=== PATIENT | female | born 1955 | race Two or more races ===

== ENCOUNTER 2016-12-24 20:17 | Observation (INO) | payer MEDICAID ==
[2016-12-24 20:55] LABS: BASO # 0.1 K/uL (0.0-0.2); BASO % 0.9 % (0.0-2.0); EOS % 0.7 % (0.0-4.0); HEMOGLOBIN 14.5 g/dL (12.0-16.0); LYMPH # 2.5 K/uL (1.0-4.3); LYMPH % 37.3 % (20.0-40.0); MEAN CELL VOLUME 90.7 fl (81.0-99.0); MEAN CORPUSCULAR HEMOGLOBIN 30.7 pg (27.0-31.0); MEAN CORPUSCULAR HGB CONC 33.9 g/dL (33.0-37.0); MONO # 0.6 K/uL (0.0-0.8); MONO % 8.9 % (0.0-10.0); NEUT # 3.5 K/uL (1.8-7.0); NEUT % 52.2 % (50.0-75.0); NRBC % 0.1 % (0.0-0.0); RBC 4.72 Mil/uL (3.80-5.20); RED CELL DISTRIBUTION WIDTH 13.6 % (11.5-14.5); WHITE BLOOD COUNT 6.8 K/uL (4.8-10.8)
[2016-12-24 20:59] LABS: BLOOD UREA NITROGEN 10 mg/dl (7-17); CALCIUM 9.4 mg/dL (8.4-10.2); GFR AFRICAN-AMERICAN > 60; GFR NON-AFRICAN AMERICAN > 60
[2016-12-24 21:00] LABS: SALICYLATE < 1.0 mg/dl
[2016-12-24 21:09] LABS: ACETAMINOPHEN < 10.0 ug/ml (10.0-30.0)
--- NOTE | 2016-12-24 21:26 | ED PDOC ---
HPI: Psych/Substance Abuse Time Seen by Provider: 12/24/16 20:20 Chief Complaint (Nursing): Psychiatric Evaluation Chief Complaint (Provider): Psych evaluation History Per: Patient Additional History Per: Other (Psych facility) Additional Complaint(s): The patient is a 61yo female, brought in for evaluation from a psych facility for noncompliance with medication and aggressive behavior towards staff. Pt arrives with an internal preoccupation with [place], states she does not want to go back to her penitentiary or stay here; pt reports she wishes to go to the airport to board a [place] flight back to [place]. She denies any suicidal or homicidal ideation. No other medical complaints. Past Medical History Reviewed: Historical Data, Nursing Documentation, Vital Signs Vital Signs: Last Vital Signs Temp 98 F 12/24/16 20:18 Pulse 88 12/24/16 20:18 Resp 18 12/24/16 20:18 BP 153/82 H 12/24/16 20:18 Pulse Ox 98 12/24/16 20:18 - Family History Family History: States: Unknown Family Hx - Home Medications Home Medications: Ambulatory Orders Medication Instructions Recorded Divalproex Sodium [Divalproex 2 tab PO HS 12/24/16 Sodium ER] Docusate Sodium [Stool Softener] 100 mg PO PRN PRN 12/24/16 Olanzapine [Zyprexa Zydis] 15 mg PO HS 12/24/16 Risperidone [Risperdal] 4 mg PO BID 12/24/16 - Allergies Allergies/Adverse Reactions: Allergies Allergy/AdvReac Type Severity Reaction Status Date / Time No Known Allergies Allergy Verified 12/24/16 20:38 Review of Systems ROS Statement: Except As Marked, All Systems Reviewed And Found Negative Psych: Positive for: Psychosis, Other (preoccupation with [place]) Physical Exam - Reviewed Nursing Documentation Reviewed: Yes Vital Signs Reviewed: Yes - Physical Exam Appears: Positive for: Well, Non-toxic, No Acute Distress Skin: Positive for: Normal Color, Warm, DRY Eye Exam: Positive for: EOMI, Normal appearance, PERRL ENT: Positive for: Normal ENT Inspection Neck: Positive for: Normal, Painless ROM Cardiovascular/Chest: Positive for: Regular Rate, Rhythm Respiratory: Positive for: CNT, Normal Breath Sounds Gastrointestinal/Abdominal: Positive for: Normal Exam, Bowel Sounds, Soft Extremity: Positive for: Normal ROM Neurologic/Psych: Positive for: Alert (refuses to answer most questions.) - Laboratory Results Result Diagrams: 12/24/16 20:45 12/24/16 20:45 - ECG O2 Sat by Pulse Oximetry: 98 (RA) Pulse Ox Interpretation: Normal Medical Decision Making Medical Decision Making: Time: 2030 Impression: Psychosis Plan: -- Drug screen -- Urinalysis -- Crisis evaluation -- ED observation Reassess Scribe Attestation: Documented by Mikki Gutierrez acting as a scribe for Chanlder Booker MD. Provider Attestation: All medical record entries made by the Scribe were at my direction and personally dictated by me. I have reviewed the chart and agree that the record accurately reflects my personal performance of the history, physical exam, medical decision making, and the department course for this patient. I have also personally directed, reviewed, and agree with the discharge instructions and disposition. ED OBSERVATION Date of observation admission: 12/24/16 Time of observation admission: 20:39 - Observation admission statement Patient is being placed in observation because:: Awaiting ED workup - Goals of Observation Goals of observation are:: Psychiatic evaluation and disposition - Progress Note Progress Note: 12/24/16 21:45 No complaints offered. Resting comfortably. 12/24/16 23:00 No complaints offered. Resting comfortably. 12/25/16 00:15 No complaints offered. Resting comfortably. 12/25/16 01:21 No complaints offered. Resting comfortably. 12/25/16 02:12 No complaints offered. Resting comfortably. Awaiting crisis eval. 12/25/16 03:15 Pt. calm and cooperative after ativan. EKG NSR @59. CXR negative as viewed by me. UTI, will prescribe macrobid. Patient is cleared medically. 12/25/16 03:46 No complaints offered at this time. Resting comfortably. 12/25/16 05:14 No complaints offered. Resting comfortably. Awaiting crisis eval. 12/25/16 06:51 No complaints offered. Resting comfortably. Awaiting crisis eval. Disposition - Clinical Impression Clinical Impression: Delusional disorder - Disposition Disposition: Transfer of Care Disposition Time: 20:39 Condition: STABLE Patient Signed Over To: Pinky Frazier Handoff Comments: Pending [facility] screening - Pt Status Changed To: Hospital Disposition Of: Observation
[2016-12-25 00:22] LABS: SQUAMOUS EPITHIAL 6 /hpf (0-5); URINE BACTERIA OCC (<OCC); URINE BILIRUBIN NEGATIVE (NEGATIVE); URINE BLOOD SMALL (NEGATIVE); URINE CLARITY CLOUDY (Clear); URINE COLOR YELLOW (YELLOW); URINE GLUCOSE (UA) NEG (Normal); URINE LEUKOCYTE ESTERASE LARGE Leu/uL (Negative); URINE NITRATE NEGATIVE (NEGATIVE); URINE PROTEIN NEGATIVE (NEGATIVE); URINE UROBILINOGEN 0.2-1.0 mg/dL (0.2-1.0)
[2016-12-25 00:33] LABS: BARBITURATES, UR NEGATIVE (NEGATIVE); BENZODIAZEPINES, UR NEGATIVE (NEGATIVE); OPIATES, UR NEGATIVE (NEGATIVE); PHENCYCLIDINE, UR NEGATIVE (NEGATIVE)
--- NOTE | 2016-12-25 07:20 | ED PDOC ---
- Laboratory Results Result Diagrams: 12/24/16 20:45 12/24/16 20:45 - ECG O2 Sat by Pulse Oximetry: 98 (RA) Disposition - Clinical Impression Clinical Impression: Delusional disorder - POA Present On Arrival: None - Disposition Disposition: Transfer of Care Disposition Time: 17:00 Condition: STABLE Patient Signed Over To: Rosalind Mcdonald Addendum Addendum: 12/25/16 07:20 Pt [address] out [address] Booker pending [facility] [place].
--- NOTE | 2016-12-25 10:32 | RAD ---
HISTORY: r/o PNA COMPARISON: No prior. FINDINGS: LUNGS: The lungs are clear. PLEURA: No significant pleural effusion identified, no pneumothorax apparent. CARDIOVASCULAR: Normal. OSSEOUS STRUCTURES: No significant abnormalities. VISUALIZED UPPER ABDOMEN: Normal. OTHER FINDINGS: None. IMPRESSION: No active pulmonary disease.
--- NOTE | 2016-12-25 21:31 | ED PDOC ---
- Laboratory Results Result Diagrams: 12/24/16 20:45 12/24/16 20:45 - ECG O2 Sat by Pulse Oximetry: 99 Disposition - Clinical Impression Clinical Impression: Delusional disorder - POA Present On Arrival: None - Disposition Disposition: Transfer of Care Disposition Time: 23:37 Condition: STABLE Patient Signed Over To: Kj Burger
--- NOTE | 2016-12-25 23:58 | ED PDOC ---
- Laboratory Results Result Diagrams: 12/24/16 20:45 12/24/16 20:45 - ECG O2 Sat by Pulse Oximetry: 99 Medical Decision Making Medical Decision Makin Signed out patient from Markell Lanza MD to me pending [facility] bedding. Patient is in ED OBS - all documentation will take place in the ED OBS section of this chart. Scribe Attestation: Documented by Ysabel Colon acting as a scribe for Kj Burgre MD. Scribe Attestation: All medical record entries made by the Scribe were at my direction and personally dictated by me. I have reviewed the chart and agree that the record accurately reflects my personal performance of the history, physical exam, medical decision making, and the department course for this patient. I have also personally directed, reviewed, and agree with the discharge instructions and disposition. Disposition - Clinical Impression Clinical Impression: Delusional disorder - POA Present On Arrival: None - Disposition Disposition: Transfer of Care Disposition Time: 20:40 Condition: STABLE Patient Signed Over To: Rosalind Mcdonald (at 0700) Handoff Comments: Pending [facility] bed availability ED OBSERVATION Date of observation admission: 12/24/16 Time of observation admission: 20:39 - Observation admission statement Patient is being placed in observation because:: Pending [facility] bed availability - Goals of Observation Goals of observation are:: [facility] bed placement - Progress Note Progress Note: 12/25/16 23:59 Patient is resting comfortably. 12/26/16 01:15 Patient resting comfortably. 12/26/16 03:00 Patient resting comfortably. 12/26/16 04:05 Patient's condition is stable. Resting comfortably. 12/26/16 05:30 Patient's condition is stable. Resting comfortably 12/26/16 06:43 Patient's condition is stable. Resting comfortably.
--- NOTE | 2016-12-26 07:27 | ED PDOC ---
- Laboratory Results Result Diagrams: 12/24/16 20:45 12/24/16 20:45 - ECG O2 Sat by Pulse Oximetry: 99 - Progress ED Course And Treament: Assumed care from Dr Burger. Pending [facility] bed assignment. Disposition Counseled Patient/Family Regarding: Studies Performed, Diagnosis - Clinical Impression Clinical Impression: Delusional disorder - POA Present On Arrival: None - Disposition Disposition: Other Institution ([facility] psych) Disposition Time: 14:40 Condition: STABLE
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
[2016-12-26 13:56] VITALS: RESP 18
[2016-12-26 15:21] VITALS: BP 139/74; PULSE 66; TEMP 98.5; O2SAT 98
--- NOTE | 2017-01-01 10:11 | CARD ---
APPROVED REPORT EKG Measurement Heart [id number] <Conclusion> Sinus bradycardia Nonspecific ST and T wave abnormality Abnormal ECG
== END 2016-12-26 15:22 ==
LOC: H.ER 20:17 → H.EROBSV 20:39
PROVIDERS: ADMIT Emergency Medicine; ATTEND Emergency Medicine
DX: F20.9 Schizophrenia, unspecified (principal); F25.9 Schizoaffective disorder, unspecified; Z91.14 Patient's other noncompliance with medication regimen